=== PATIENT | male | born 1950 | race Caucasian/White ===

== ENCOUNTER 2017-06-15 16:49 | Emergency (ER) | payer MEDICARE ==
[2017-06-15 17:04] VITALS: BP 119/71
[2017-06-15 17:45] LABS: BASOPHILS % (AUTO) 0.4 %; EOSINOPHILS # (AUTO) 0.1 10^3/uL (0.0-0.7); HCT - HEMATOCRIT 40.2 % (42.0-52.0); HGB - HEMOGLOBIN 13.6 g/dL (14.0-18.0); LYMPHOCYTES # (AUTO) 0.9 10^3/uL (1.5-3.5); LYMPHOCYTES % (AUTO) 23.2 %; MEAN CORPUSCULAR HEMOGLOBIN 29.8 pg (27.0-31.0); MEAN CORPUSCULAR HGB CONC 33.7 g/dL (32.0-36.0); MEAN CORPUSCULAR VOLUME 88.3 fL (80.0-94.0); MEAN PLATELET VOLUME 6.7 fL (7.4-11.4); MONOCYTES # (AUTO) 0.6 10^3/uL (0.0-1.0); MONOCYTES % (AUTO) 14.2 %; NEUTROPHILS # (AUTO) 2.4 10^3/uL (1.5-6.6); NEUTROPHILS % (AUTO) 59.2 %; NUCLEATED RED BLOOD CELLS AUTO 0.1 /100WBC; RED BLOOD COUNT 4.56 10^6/uL (4.70-6.10)
[2017-06-15 18:00] LABS: ALBUMIN/GLOBULIN RATIO 1.4 (1.0-2.2); BILIRUBIN,TOTAL 0.8 mg/dL (0.2-1.0); CALCIUM 9.4 mg/dL (8.5-10.3); CREATININE 0.8 mg/dL (0.6-1.2); TOTAL PROTEIN 7.4 g/dL (6.7-8.2)
--- NOTE | 2017-06-15 19:37 | ED Physician Documentation ---
PD HPI CHEST PAIN - Stated complaint Stated Complaint: IRREGULAR HB - Chief complaint Chief Complaint: Cardiac - History obtained from History obtained from: Patient, Family - History of Present Illness Timing - onset: How many weeks ago (1) Timing - onset during: Sleep Timing - details: Gradual onset, Intermittant Improved by: Other (walking, or exertion) Associated symptoms: Palpitations. No: Diaphoresis, Feeling faint / dizzy, General Weakness Similar symptoms before: No diagnosis Recently seen: Not recently seen - Additional information Additional information: Patient is a 66 year old male with a history of anxiety who is presenting to the emergency department for intermittent chest "Pinging" patient states that every now and again he gets a ping in his chest. he states it gets better if he walks or other exertion. Patient currently denies any complaints. Patient reports that he has a follow up on wednesday. Review of Systems Constitutional: denies: Fever, Chills Eyes: denies: Decreased vision Ears: denies: Ear pain, Drainage/discharge Nose: denies: Rhinorrhea / runny nose, Congestion Throat: denies: Sore throat Cardiac: reports: Palpitations. denies: Chest pain / pressure, Pedal edema Respiratory: denies: Dyspnea, Cough GI: denies: Abdominal Pain, Nausea, Vomiting Musculoskeletal: denies: Neck pain, Back pain, Extremity pain Neurologic: denies: Generalized weakness, Focal weakness, Numbness, Altered mental status Psychiatric: reports: Anxiety Immunocompromised: denies: Immunocompromised PD ED PE NORMAL - Vitals Vital signs reviewed: Yes - General General: Alert and oriented X 3, Well developed/nourished - HEENT HEENT: Atraumatic, PERRL - Neck Neck: Supple, no meningeal sign, No JVD - Cardiac Cardiac: RRR, No murmur - Respiratory Respiratory: No respiratory distress - Abdomen Abdomen: Soft, Non tender, Non distended - Derm Derm: Normal color, Warm and dry, No rash - Extremities Extremities: No deformity, No tenderness to palpate - Neuro Neuro: Alert and oriented X 3, No motor deficit, No sensory deficit, Normal speech - Psych Psych: Normal mood PD ED PE EXPANDED - General General: Alert, Anxious Results - Vitals Vitals: Vital Signs - 24 hr 06/15/17 16:59 Temperature 36.7 C Heart Rate 70 Respiratory 16 Rate Blood Pressure 119/71 O2 Saturation 98 Oxygen O2 Source Room air - EKG (time done) 1721 Rate: Rate (enter#) (66) Rhythm: NSR [place]: Normal Intervals: Normal LA QRS: Normal Ischemia: Normal ST segments Compare to prior EKG: Old EKG unavailable - Labs Labs: Laboratory Tests 06/15/17 06/15/17 06/15/17 17:39 17:39 17:39 WBC 4.0 L RBC 4.56 L Hgb 13.6 L Hct 40.2 L MCV 88.3 MCH 29.8 MCHC 33.7 RDW 14.0 Plt Count 244 MPV 6.7 L Neut # 2.4 Lymph # 0.9 L [place] # 0.6 Eos # 0.1 Baso # 0.0 Absolute Nucleated RBC 0.01 Nucleated RBCs 0.1 Sodium 138 Potassium 4.0 Chloride 99 L Carbon Dioxide 31 Anion Gap 8.0 BUN 10 Creatinine 0.8 Estimated GFR (MDRD) 97 Glucose 115 H Calcium 9.4 Total Bilirubin 0.8 AST 18 ALT 14 Alkaline Phosphatase 52 Troponin I < 0.04 Total Protein 7.4 Albumin 4.3 Globulin 3.1 Albumin/Globulin Ratio 1.4 Lipase 26 PD MEDICAL DECISION MAKING - ED course Complexity details: reviewed old records, reviewed results, re-evaluated patient , considered differential, d/w patient, d/w family ED course: Patient was seen and examined at bedside. Patient was anxious but otherwise in no distress. iv access had already been gained and labs had been drawn. ekg was performed and was normal sinus. Patient was sinus on the monitor and had normal vital signs. Patient denied any chest pain or shortness of breath. Patient's diagnostics were all within normal limits. patient had low monty and heart scores and was stable for outpatient follow up. Departure - Departure Disposition: Home, Self Care Clinical Impression: Palpitations Condition: Good Instructions: ED Palpitations Follow-Up: Venkata Rangel MD [Primary Care Provider] - Within 3 Days Comments: Your diagnostics today were within normal limits. that being said this is only a snapshot in time. it is important that you follow up with your doctor on the appointment on wednesday. I would recommend a holter monitor for further monitoring. You should refrain from excessive caffeine or other stimulants. You should return to the emergency department at any time for new, worsening or uncontrollable symptoms. Discharge Date/Time: 06/15/17 19:46
== END 2017-06-15 19:46 | disposition home or self-care (01) ==
LOC: ED 16:49
DX: R00.2 Palpitations (principal); F41.9 Anxiety disorder, unspecified
CPT/HCPCS: 36415; 80053; 83690; 84484; 85025; 93005; 99283

== ENCOUNTER 2023-04-17 16:50 | Emergency (ER) | payer MEDICARE ==
--- NOTE | 2023-04-17 17:04 | ED Physician Documentation ---
PD HPI UPPER EXT INJURY - Stated complaint Stated Complaint: R FINGER INJ - Chief complaint Chief Complaint: Trauma Ext - History obtained from History obtained from: Patient - History of Present Illness Location: Right, Finger (His finger bent back while running after his dog yesterday and he has isolated pain of the right fifth finger. No other injuries.) PD PAST MEDICAL HISTORY - Allergies Allergies/Adverse Reactions: Allergies Allergy/AdvReac Type Severity Reaction Status Date / Time No Known Drug Allergies Allergy Verified 04/17/23 16:57 PD ED PE NORMAL - Vitals Vital signs reviewed: Yes - General General: Alert and oriented X 3, No acute distress - Extremities Extremities: Other (There is moderate tenderness and a mild deformity at the DIP of the right small finger. Normal neurovascular function of the tip.) - Neuro Neuro: Alert and oriented X 3, Normal speech - Psych Psych: Normal mood, Normal affect Results - Vitals Vitals: Vital Signs - 24 hr 04/17/23 16:53 Temperature 36.1 C L Heart Rate 66 Respiratory 16 Rate Blood Pressure 126/72 O2 Saturation 97 Oxygen O2 Source Room air PD Medical Decision Making - ED course ED course: x-ray read as normal, but he has a new deformity with arthritic changes at the DIP. So I went ahead and did a digital block of the right fifth finger with excellent anesthesia and was able to get the finger straighter and placed in a metal foam finger splint. Departure - Departure Disposition: 01 Home, Self Care Clinical Impression: Finger fracture, right Qualifiers: Encounter type: initial encounter Finger: ring finger Fracture type: closed Phalanx: distal Fracture alignment: nondisplaced Qualified Code(s): S62.664A - Nondisplaced fracture of distal phalanx of right ring finger, initial encounter for closed fracture Condition: Good Record reviewed to determine appropriate education?: Yes Instructions: ED Fx Finger Closed Comments: Wear the splints except when you are washing your hands for the next 2 weeks. Follow-up with your doctor in a week for recheck. Return for new or worsening symptoms.
[2023-04-17 17:09] VITALS: BP 126/72
[2023-04-17] MEDS ORDERED: BUFFERED LIDOCAINE 10 ML SYRINGE SUBQ STA (17:13)
--- NOTE | 2023-04-17 17:25 | XRAY Report ---
PROCEDURE: Finger(s) RT INDICATIONS: Right fifth finger injury TECHNIQUE: AP hand, 2 views of the fifth finger(s) acquired. COMPARISON: None. FINDINGS: Bones: No fractures or dislocations. No suspicious bony lesions. Arthritic changes Soft tissues: No suspicious soft tissue calcifications or masses. IMPRESSION: No acute bony abnormality. Distal arthritic changes noted Reviewed by: Amborse Drake MD on 04/17/2023 4:24 PM AKDT Approved by: Ambrose Drake MD on 04/17/2023 4:24 PM AKDT Station ID: [id number]
== END 2023-04-17 17:50 | disposition home or self-care (01) ==
LOC: ED 16:50
DX: S62.664A Nondisplaced fracture of distal phalanx of right ring finger, initial encounter for closed fracture (principal); X58.XXXA Exposure to other specified factors, initial encounter
CPT/HCPCS: 26755; 99283

== ENCOUNTER 2024-05-17 14:44 | Outpatient (CLI) | payer MEDICARE ==
[2024-05-17 15:25] LABS: CREATININE 0.9 mg/dL (0.6-1.3)
[2024-05-17] MEDS ORDERED: iohexoL-300 100 ML VIAL ONE (15:39)
[2024-05-17] MEDS: iohexoL-300 100 ML VIAL IVP ONE (16:02)
--- NOTE | 2024-05-17 18:03 | CT Report ---
PROCEDURE: Soft Tissue Neck W INDICATIONS: ESOPHAGEL CA CONTRAST: 100ml [id number] TECHNIQUE: After the administration of intravenous contrast, 3.0 mm axial sections acquired from the sella to th e aortic arch. Additional oblique axial 3.0 mm sections acquired through the pharynx. 3 mm thick co norman reformats were generated. For radiation dose reduction, the following was used: automated exp osure control, adjustment of mA and/or kV according to patient size. COMPARISON: None. FINDINGS: Image quality: Excellent. Lymph nodes: No enlarged lymph nodes seen throughout the neck. Vessels: Visualized vasculature appears patent. Neck spaces: The oropharynx, nasopharynx, and pharynx demonstrate no mucosal lesions. The vocal cor ds, false vocal cords, pyriform sinuses, epiglottis, vallecula, and tongue base all appear normal. E xtramucosal spaces appear unremarkable. Glands: The parotid and submandibular glands appear normal. The thyroid is normal in size and there are no incidental findings. Miscellaneous: Visualized brain and orbits appear normal. Lung apices appear clear. Superficial so ft tissues appear normal. Gastric pull-through changes are partially seen on this study. Bones: No suspicious bony lesions. Visualized sinuses and mastoids appear unremarkable. Focal lowe r cervical spine degenerative changes can be seen. IMPRESSION: Gastric pull-through changes are partially seen. No elliott soft tissue masses are seen. No enlarged lymph nodes are detected. Additional findings: Focal lower cervical spine degenerative change Reviewed by: Asim Stein MD on 05/17/2024 5:01 PM LETY Approved by: Asim Stein MD on 05/17/2024 5:01 PM AKREGLA Station ID: [id number]
== END 2024-05-17 14:45 | disposition home or self-care (01) ==
LOC: LAB 14:44
PROVIDERS: ATTEND Internal Medicine
DX: C15.8 Malignant neoplasm of overlapping sites of esophagus (principal); Z85.01 Personal history of malignant neoplasm of esophagus
CPT/HCPCS: 36415; 70491; 82565; Q9967

== ENCOUNTER 2024-06-05 20:28 | Emergency (ER) | payer MEDICARE ==
[2024-06-05 20:54] VITALS: BP 123/69; O2SAT 97
--- NOTE | 2024-06-05 21:05 | ED Physician Documentation ---
History of Present Illness - Stated complaint Stated Complaint: LT TOE PX - Chief complaint Chief Complaint: Ext Problem - History obtained from History obtained from: Patient - Additonal information Additional information: This is a 73-year-old male who presented with left toe redness and swelling. He states yesterday he tried to trim down his great toenail which was thickened from fungal infection, he used his toenail clippers and trim the nail almost all the way down to the nail matrix, he does not believe he cause any bleeding when he did this and does not think he cut the nail bed but today he woke up with some increased pain in the toe and increased swelling with faint redness around the nail. No drainage. He has not had a fever. He is not diabetic. He denies any other concerns today. PD PAST MEDICAL HISTORY - Past Medical History Past Medical History: Yes Other Past Medical History: esophageal cancer - Past Surgical History Past Surgical History: Yes - Present Medications Home Medications: Ambulatory Orders Medication Instructions Recorded Confirmed cephALEXin [Keflex] 500 mg PO Q6H #20 cap 06/05/24 - Allergies Allergies/Adverse Reactions: Allergies Allergy/AdvReac Type Severity Reaction Status Date / Time cat dander AdvReac Unknown Verified 06/05/24 20:44 shellfish derived AdvReac Unknown Verified 06/05/24 20:44 tomato AdvReac Respiratory Verified 06/05/24 20:44 - Social History Does the pt smoke?: No Smoking Status: Never smoker Does the pt drink ETOH?: No Does the pt have substance abuse?: No - Immunizations Immunizations are current?: Yes - POLST Patient has POLST: No PD ED PE NORMAL - Vitals Vital signs reviewed: Yes - General General: Alert and oriented X 3, No acute distress, Well developed/nourished - Derm Derm: Normal color, Warm and dry, Other (There is faint redness around the left great toenail. The nail is clipped down nearly to the matrix, there is evidence of a thickened toenail Onychomycosis. No drainage. No obvious ulcerations or lacerations.) - Extremities Extremities: Other (There is moderate swelling of the right great toe with tenderness at the base of the nail, no deformity. He does have large bunions bilaterally.) Results - Vitals Vitals: Vital Signs - 24 hr 06/05/24 20:38 Temperature 36.2 C L Heart Rate 61 Respiratory 17 Rate Blood Pressure 123/69 O2 Saturation 97 Oxygen O2 Source Room air PD Medical Decision Making - ED course Complexity details: considered differential, d/w patient ED course: 73-year-old male presented with left great toe pain after clipping his nail down to nearly the matrix as described in HPI Overnight the toe became somewhat swollen and mildly red and he is concerned for possible infection. He is not diabetic. On exam, there is faint redness around the nail bed, and it is somewhat larger than the left toe, there is no streaking erythema, no drainage, no obvious lesions or lacerations. I discussed with patient that this may simply be irritation mild swelling from his procedural intervention but could be early infection. After discussion with patient, he would like to start on antibiotics therefore we will start with Keflex, advised to keep an eye on the toe on a daily or twice daily basis to ensure that it is not worsening, return if there is increased redness, swelling, increased pain, fever or new concerns. Patient strongly urged in the future to avoid clipping his second toenail in the manner that he did. Departure - Departure Disposition: 01 Home, Self Care Clinical Impression: Toe infection Condition: Good Instructions: ED Infec Skin Cellulitis Prescriptions: cephALEXin [Keflex] 500 mg PO Q6H #20 cap Comments: Please keep your toe clean and dry, monitor daily for improvement. Please do not use the nail clipper To remove your nail as you can introduce infection into the toe. If worsens, return to the ER. Forms: PCP List
[2024-06-05] MEDS: cephALEXin 250 MG CAPSULE PO STA (21:11)
[2024-06-05] MEDS: CEPHALEXIN 250 MG Prepack 8 CAP BOTTLE PO STA (21:12)
== END 2024-06-05 21:17 | disposition home or self-care (01) ==
LOC: ED 20:28
DX: L08.9 Local infection of the skin and subcutaneous tissue, unspecified (principal)
CPT/HCPCS: 99283; A9270